=== PATIENT | male | born 1960 | race African-American/Black ===

== ENCOUNTER 2021-09-02 17:53 | Observation (INO) | payer OTHER, SELFPAY ==
--- NOTE | 2021-09-02 | ECG_ITS ---
Test Reason : GENERAL MEDICAL Blood Pressure : / mmHG Vent. Rate : 094 BPM Atrial Rate : 094 BPM P-R Int : 124 ms QRS Dur : 080 ms QT Int : 386 ms P-R-T Axes : 071 -61 118 degrees QTc Int : 482 ms Normal sinus rhythm Right atrial enlargement Minimal voltage criteria for LVH, may be normal variant ( Byron product ) ST elevation, consider early repolarization, pericarditis, or injury T wave abnormality, consider lateral ischemia Abnormal ECG No significant changes when compared with the previous EKG of same day. Referred By: Jadiel Garrett Electronically Signed By:GLADYS PEDRO
--- NOTE | ~2021-09-02 | XR_ITS ---
EXAMINATION: XR CHEST CLINICAL INFORMATION: Low oxygen saturation COMPARISON: None TECHNIQUE: Frontal view of the chest was obtained. FINDINGS: Cardiac leads overlie the chest. The lungs are well expanded. There is no focal consolidation, edema, or effusion. No pneumothorax. The cardiomediastinal silhouette is within normal limits. No acute osseous abnormality. XR/XR chest 1V IMPRESSION: Clear lungs.
--- NOTE | 2021-09-02 18:03 | ED.SEIZURE ---
HPI - Seizure General Chief Complaint: Seizure Stated Complaint: seizure yesterday Time Seen by Provider: 09/02/21 18:03 Source: patient Mode of arrival: EMS Limitations: no limitations History of Present Illness HPI Narrative: Patient with history of seizure for long time on Keppra came by EMS for having a seizure episode last night patient does get seizures off and on missed his Keppra last night now he does not any place to live looking for a place no head injury no other injuries patient is edentulous no tongue bite patient is on Keppra, aspirin, hydroxyzine, trazodone, olanzapine, meloxicam, and Plavix patient denies any chest pain or shortness of breath Related Data Home Medications Medication Instructions Recorded Confirmed aspirin 81 mg tablet,delayed 81 mg PO DAILY 09/02/21 09/02/21 release bacitracin 500 unit/gram topical 1 appl topical BID 09/02/21 09/02/21 ointment clopidogrel 75 mg tablet 75 mg PO DAILY 09/02/21 09/02/21 hydroxyzine pamoate 50 mg capsule 50 mg PO Q4H PRN Anxiety 09/02/21 09/02/21 levetiracetam 500 mg tablet 500 mg PO BID 09/02/21 09/02/21 meloxicam 15 mg tablet 15 mg PO DAILY 09/02/21 09/02/21 nicotine (polacrilex) 2 mg buccal 2 mg buccal Q2H PRN CRAVINGS 09/02/21 09/02/21 lozenge nicotine 21 mg/24 hr daily 1 patch transdermal DAILY 09/02/21 09/02/21 transdermal patch olanzapine 7.5 mg tablet 7.5 mg PO BEDTIME 09/02/21 09/02/21 trazodone 100 mg tablet 100 mg PO BEDTIME PRN Insomnia 09/02/21 09/02/21 Allergies Allergy/AdvReac Type Severity Reaction Status Date / Time No Known Allergies Allergy Verified 09/02/21 18:04 [facility] Past Medical History Medical History (Updated 09/03/21 @ 00:36 by Jadiel Garrett MD) Anxiety disorder Cocaine abuse Gout Hypertension Kidney stone Major depression Nicci PTSD (post-traumatic stress disorder) Seizure disorder TBI (traumatic brain injury) Surgical History (Updated 09/02/21 @ 23:25 by Lavon Ngo MD) No pertinent past surgical history Family History Family History (Updated 09/02/21 @ 23:24 by Lavon Ngo MD) Other No family history of coronary artery disease Social History Social History Alcohol intake: current Alcohol intake frequency: former alcohol drinker Patient Tobacco Use Status: Current everyday Tobacco user Use of substances other than those prescribed or required for medical reasons: Yes Substance Use Type: Crack/Cocaine and Marijuana Substance Use Frequency: Occasionally Advance Directives: No Advance Directives Information Provided: No service: Yes Current occupational status: unemployed Physical Exam Vital Signs: Vital Signs: Last Vital Signs Temp 98.3 F 09/02/21 23:13 Pulse 97 09/02/21 21:28 Resp 22 H 09/02/21 23:13 BP 101/73 09/02/21 23:13 Pulse Ox 96 09/02/21 23:13 O2 Del Method 09/02/21 23:13 BMI result Body Mass Index 21.4 Appearance: Alert. Oriented X3. No acute distress. Eyes: PERRLA, No Nystagmus ENT: Pharynx normal. Oral Mucosa moist Neck: Normal inspection. Neck supple. CVS: Normal heart rate and rhythm. Pulses normal. No murmur no rub or gallop Respiratory: No respiratory distress. Equal air entry bilateral, no wheezing/rales/rhonchi Abdomen: Soft and nontender. Bowel sounds are present, no mass palpable, no CVA tenderness Skin: Skin warm and dry. Normal skin color. Normal skin turgor. Extremities: No lower extremity edema. No calf tenderness psych: Rapid speech frequently changing thought processing, nonsuicidal Neuro: Oriented X 3. No motor deficit. No sensory deficit.No cerebellar signs , cranial nerves II-XII intact Course Reevaluation(s) Reevaluation #1: Patient denies any typical chest pain Tan whole body hurts EKG showed slight ST elevation concave upwards in V1 V2 with T inversion in lead 1 lead aVL V4 V5 V6 no old EKG to compare patient troponin initial was 19.6 at this time patient denies any significant chest pain will repeat the EKG and repeat troponin Time: 20:34 MDM - Seizure MDM Narrative Medical decision making narrative: 9 pm Patient sleeping relaxed denies any chest pain EKG showed slight ST elevation in anterior leads case discussed with Dr. Shea product management manager ot STEMI but little concern repeat troponin and start on heparin drip if troponin increases significantly transfer [facility] 2200 repeat troponins less than initial troponin. Patient denies any chest pain. Will admit patient for observation and Cardiology evaluation tomorrow Lab Data Attestation: I reviewed the patient's lab results. Result diagrams: 09/02/21 19:30 09/02/21 19:30 Labs: Lab Results 09/02/21 09/02/21 09/02/21 Range/Units 18:47 19:30 19:30 WBC 16.5 H (4.8-10.8) X10*3/uL RBC 5.15 (4.60-5.80) X10*6/uL Hgb 14.0 (14.0-18.0) g/dl Hct 41.5 L (42.0-52.0) % MCV 80.6 (80.0-98.0) fL MCH 27.2 (27.0-33.0) pg MCHC 33.7 (31.0-36.0) g/dl RDW 14.3 (11.0-16.0) % Plt Count 362 (160-400) X10*3/uL MPV 10.0 (9.4-12.4) fL Immature Gran % (Auto) 0.5 H (0.0-0.4) % Neut % (Auto) 82.7 H (45-73) % Lymph % (Auto) 10.7 L (20-40) % [place] % (Auto) 5.9 (2-11) % Eos % (Auto) 0.1 (0-4) % Baso % (Auto) 0.1 (0-2) % Lymph # (Auto) 1.8 (1.2-4.9) X10*3/uL [place] # (Auto) 1.0 (0.1-1.2) X10*3/uL Eos # (Auto) 0.0 (0.0-0.4) X10*3/uL Baso # (Auto) 0.0 (0.0-0.2) X10*3/uL Abs Immat Gran (auto) 0.08 H (0.00-0.03) X10*3/uL Absolute Neuts (auto) 13.7 H (2.0-8.3) x10*3/uL Absolute Nucleated RBC 0.000 (0.0-0.012) X10*3/uL Nucleated RBC % (auto) 0.0 (0.0-0.2) /100WBC Smear Tech's Comments VERIFIED PT (10.0-13.1) SEC INR (0.9-1.1) aPTT Heparin Protocol (53-77.9) SEC Sodium 137 (135-145) mmol/L Potassium 4.3 (3.3-5.1) mmol/L Chloride 104 (96-108) mmol/L Carbon Dioxide 24 (22-29) mmol/L Anion Gap 13 (12-20) BUN 18 H (9-16) mg/dL Creatinine 1.30 (0.5-1.4) mg/dL Estim Creat Clear Calc 48.4 Estimated GFR 56 Random Glucose 75 (60-115) mg/dL Calcium 9.6 (8.4-10.2) mg/dL Total Bilirubin 1.2 H (0.0-1.0) mg/dL AST 24 (5-37) U/L ALT 16 (0-40) U/L Alkaline Phosphatase 85 (39-117) U/L Troponin I High Sens (<3.5-35.0) ng/L Total Protein 8.7 H (6.5-8.0) g/dL Albumin 4.4 (3.5-5.0) g/dL Urine Color Urine Appearance Urine pH (5.0-8.0) Ur Specific [place] (1.005-1.025) Urine Protein (NEG-TRACE) MG/DL Urine Glucose (UA) (NEG) MG/DL Urine Ketones (NEG) MG/DL Urine Blood (NEG) Urine Nitrite (NEG) Ur Leukocyte Esterase (NEG) Urine Opiates Screen (Not Detect) Urine Fentanyl Screen (Not Detect) Ur Barbiturates Screen (Not Detect) Ur Phencyclidine Scrn (Not Detect) Ur Amphetamines Screen (Not Detect) Urine Cocaine Screen (Not Detect) U Marijuana (THC) Screen (Not Detect) COVID-19 (MARS) Negative (Negative) COVID-19 Clin Com See Note Influenza Type A (FELICITA) (Negative) Influenza Type B (FELICITA) (Negative) Influenza A & B Note 09/02/21 09/02/21 09/02/21 Range/Units 19:31 19:33 21:00 WBC (4.8-10.8) X10*3/uL RBC (4.60-5.80) X10*6/uL Hgb (14.0-18.0) g/dl Hct (42.0-52.0) % MCV (80.0-98.0) fL MCH (27.0-33.0) pg MCHC (31.0-36.0) g/dl RDW (11.0-16.0) % Plt Count (160-400) X10*3/uL MPV (9.4-12.4) fL Immature Gran % (Auto) (0.0-0.4) % Neut % (Auto) (45-73) % Lymph % (Auto) (20-40) % [place] % (Auto) (2-11) % Eos % (Auto) (0-4) % Baso % (Auto) (0-2) % Lymph # (Auto) (1.2-4.9) X10*3/uL [place] # (Auto) (0.1-1.2) X10*3/uL Eos # (Auto) (0.0-0.4) X10*3/uL Baso # (Auto) (0.0-0.2) X10*3/uL Abs Immat Gran (auto) (0.00-0.03) X10*3/uL Absolute Neuts (auto) (2.0-8.3) x10*3/uL Absolute Nucleated RBC (0.0-0.012) X10*3/uL Nucleated RBC % (auto) (0.0-0.2) /100WBC Smear Tech's Comments PT (10.0-13.1) SEC INR (0.9-1.1) aPTT Heparin Protocol (53-77.9) SEC Sodium (135-145) mmol/L Potassium (3.3-5.1) mmol/L Chloride (96-108) mmol/L Carbon Dioxide (22-29) mmol/L Anion Gap (12-20) BUN (9-16) mg/dL Creatinine (0.5-1.4) mg/dL Estim Creat Clear Calc Estimated GFR Random Glucose (60-115) mg/dL Calcium (8.4-10.2) mg/dL Total Bilirubin (0.0-1.0) mg/dL AST (5-37) U/L ALT (0-40) U/L Alkaline Phosphatase (39-117) U/L Troponin I High Sens 19.6 18.6 (<3.5-35.0) ng/L Total Protein (6.5-8.0) g/dL Albumin (3.5-5.0) g/dL Urine Color Urine Appearance Urine pH (5.0-8.0) Ur Specific [place] (1.005-1.025) Urine Protein (NEG-TRACE) MG/DL Urine Glucose (UA) (NEG) MG/DL Urine Ketones (NEG) MG/DL Urine Blood (NEG) Urine Nitrite (NEG) Ur Leukocyte Esterase (NEG) Urine Opiates Screen (Not Detect) Urine Fentanyl Screen (Not Detect) Ur Barbiturates Screen (Not Detect) Ur Phencyclidine Scrn (Not Detect) Ur Amphetamines Screen (Not Detect) Urine Cocaine Screen (Not Detect) U Marijuana (THC) Screen (Not Detect) COVID-19 (MARS) (Negative) COVID-19 Clin Com Influenza Type A (FELICITA) Negative (Negative) Influenza Type B (FELICITA) Negative (Negative) Influenza A & B Note See Note 09/02/21 09/02/21 09/02/21 Range/Units 21:19 21:43 21:43 WBC (4.8-10.8) X10*3/uL RBC (4.60-5.80) X10*6/uL Hgb (14.0-18.0) g/dl Hct (42.0-52.0) % MCV (80.0-98.0) fL MCH (27.0-33.0) pg MCHC (31.0-36.0) g/dl RDW (11.0-16.0) % Plt Count (160-400) X10*3/uL MPV (9.4-12.4) fL Immature Gran % (Auto) (0.0-0.4) % Neut % (Auto) (45-73) % Lymph % (Auto) (20-40) % [place] % (Auto) (2-11) % Eos % (Auto) (0-4) % Baso % (Auto) (0-2) % Lymph # (Auto) (1.2-4.9) X10*3/uL [place] # (Auto) (0.1-1.2) X10*3/uL Eos # (Auto) (0.0-0.4) X10*3/uL Baso # (Auto) (0.0-0.2) X10*3/uL Abs Immat Gran (auto) (0.00-0.03) X10*3/uL Absolute Neuts (auto) (2.0-8.3) x10*3/uL Absolute Nucleated RBC (0.0-0.012) X10*3/uL Nucleated RBC % (auto) (0.0-0.2) /100WBC Smear Tech's Comments PT 13.4 H (10.0-13.1) SEC INR 1.2 H (0.9-1.1) aPTT Heparin Protocol 28.9 L (53-77.9) SEC Sodium (135-145) mmol/L Potassium (3.3-5.1) mmol/L Chloride (96-108) mmol/L Carbon Dioxide (22-29) mmol/L Anion Gap (12-20) BUN (9-16) mg/dL Creatinine (0.5-1.4) mg/dL Estim Creat Clear Calc Estimated GFR Random Glucose (60-115) mg/dL Calcium (8.4-10.2) mg/dL Total Bilirubin (0.0-1.0) mg/dL AST (5-37) U/L ALT (0-40) U/L Alkaline Phosphatase (39-117) U/L Troponin I High Sens (<3.5-35.0) ng/L Total Protein (6.5-8.0) g/dL Albumin (3.5-5.0) g/dL Urine Color YELLOW Urine Appearance CLEAR Urine pH 6.0 (5.0-8.0) Ur Specific [place] 1.020 (1.005-1.025) Urine Protein TRACE (NEG-TRACE) MG/DL Urine Glucose (UA) NEG (NEG) MG/DL Urine Ketones 5 (NEG) MG/DL Urine Blood NEG (NEG) Urine Nitrite NEG (NEG) Ur Leukocyte Esterase NEG (NEG) Urine Opiates Screen Not Detected (Not Detect) Urine Fentanyl Screen Not Detected (Not Detect) Ur Barbiturates Screen Not Detected (Not Detect) Ur Phencyclidine Scrn Not Detected (Not Detect) Ur Amphetamines Screen Not Detected (Not Detect) Urine Cocaine Screen POSITIVE H (Not Detect) U Marijuana (THC) Screen POSITIVE H (Not Detect) COVID-19 (MARS) (Negative) COVID-19 Clin Com Influenza Type A (FELICITA) (Negative) Influenza Type B (FELICITA) (Negative) Influenza A & B Note ECG Data Attestation: I personally reviewed and interpreted this ECG as follows: Interpretation: Normal sinus rhythm heart rate [address] elevation with concave upwards in V1 V2 T inversion in lead 1 aVL V4 V5 V6 questionable pericarditis versus early repolarization. Critical Care Time Critical Care Time Critical Care Time: Yes Total Critical Care Time: 55 Attestation: I spent 55 minutes of critical care, with interventions, assessments, speaking to patient, consultants, and family. Discharge Plan Discharge Clinical Impression: Epileptic seizure, Abnormal ECG, Non-ST elevation AL (NSTEMI) Patient Disposition: Admitted As Inpatient
[2021-09-02 18:09] VITALS: BP 124/83; BP 130/80; PULSE 94; PULSE 98; RESP 20; TEMP 36.9; O2SAT 91; O2SAT 98; BMI 21.4
--- NOTE | 2021-09-02 18:20 | PC.NURSE ---
PATIENT WAS CHANGE INTO HOSPITAL ATTIRE BY THIS PCT ,PATIENT BELONGINGS ARE IN DECON.
[2021-09-02] MEDS: levETIRAcetam 500 MG TABLET PO (18:23)
--- NOTE | 2021-09-02 19:00 | ECG_ITS ---
Test Reason : CP Blood Pressure : / mmHG Vent. Rate : 093 BPM Atrial Rate : 093 BPM P-R Int : 132 ms QRS Dur : 074 ms QT Int : 374 ms P-R-T Axes : 063 -63 128 degrees QTc Int : 465 ms Normal sinus rhythm Biatrial enlargement ST elevation anterior leads, possible repolarization or pericarditis T wave abnormality, consider lateral ischemia Abnormal ECG No previous ECGs available Referred By: Jadiel Garrett Electronically Signed By:GLADYS PEDRO
[2021-09-02 19:14] LABS: COVID-19 Test Negative (Negative)
[2021-09-02 19:46] LABS: Basophils Percent Auto 0.1 % (0-2); Eosinophils Percent Auto 0.1 % (0-4); Hematocrit 41.5 % (42.0-52.0); Imm Gran Abs Auto 0.08 X10*3/uL (0.00-0.03); Imm Gran Pct Auto 0.5 % (0.0-0.4); Lymphocytes Absolute Auto 1.8 X10*3/uL (1.2-4.9); Lymphocytes Percent Auto 10.7 % (20-40); MANUAL DIFF FLAG SCAN; Mean Corpuscular HGB Conc 33.7 g/dl (31.0-36.0); Mean Corpuscular Hemoglobin 27.2 pg (27.0-33.0); Mean Corpuscular Volume 80.6 fL (80.0-98.0); Monocytes Percent Auto 5.9 % (2-11); Neutrophils Absolute Auto 13.7 x10*3/uL (2.0-8.3); Neutrophils Percent Auto 82.7 % (45-73); PLT CLUMP 1; Red Blood Count 5.15 X10*6/uL (4.60-5.80); Red Cell Distribution Width 14.3 % (11.0-16.0); SCAN SMEAR FLAG 1
[2021-09-02 19:54] VITALS: BP 131/90; PULSE 90; RESP 16; TEMP 36.9; O2SAT 93
[2021-09-02 19:55] LABS: Influenza A Negative (Negative); Influenza B2 Negative (Negative)
[2021-09-02 19:56] LABS: Alanine Aminotransferase 16 U/L (0-40); Albumin Level 4.4 g/dL (3.5-5.0); Alkaline Phosphatase 85 U/L (39-117); Anion Gap 13 (12-20); Aspartate Amino Transferase 24 U/L (5-37); Bilirubin Total 1.2 mg/dL (0.0-1.0); Blood Urea Nitrogen 18 mg/dL (9-16); Calcium 9.6 mg/dL (8.4-10.2); Carbon Dioxide 24 mmol/L (22-29); Chloride 104 mmol/L (96-108); Creatinine Clr Calc Pharmacy 48.4; Estimated Glomerular Filt Rate 56; Glucose Random 75 mg/dL (60-115); Potassium 4.3 mmol/L (3.3-5.1); Sodium 137 mmol/L (135-145); Total Protein 8.7 g/dL (6.5-8.0)
[2021-09-02 19:59] LABS: Troponin-I High Sensitivity 19.6 ng/L (<3.5-35.0)
[2021-09-02 20:03] LABS: Platelet Count 362 X10*3/uL (160-400); SLIDE REVIEW VERIFIED; White Blood Count 16.5 X10*3/uL (4.8-10.8)
--- NOTE | 2021-09-02 20:11 | MHC.CM.ED ---
Addendum entered by Naye Amaya 09/02/21 22:50: Per Dr. Espinoza, will admit. ST elevations, sl elevated troponin. Pt will need CARE team assessment when medically cleared. Has [facility] insurance. No Medicare per patient. Uses [facility]. Pt is poor historian. CM to call Donna at [facility] in the am to verify service. D/C plan pending CARE team assessment. Pt is homeless. States he does not live at the [place] address. CM to follow for d/c needs if needed. Addendum entered by Naye Amaya 09/02/21 21:41: Ania Corcoran (mother) [phone] [facility] Original Note: CM met with patient at request of Dr. Espinoza. Pt is A&Ox3. Rapid speech with frequently changing thoughts. Pt unable to stay on track with questions. States was living with someone in [place] and they kicked him out. Says he was gonna pay them $1000 to stay with them. States he met them on [employer] list. Thinks it was a scam . Admits to cocaine use. CM noted a wrist band on patient with [facility] logo and W[facility]L. [facility] but [facility] He is not a prisioner there . Pt tells CM he is 100% vet connected. [facility] called [facility] [place]. Requested information about this patient. Patient was admitted there from 08/11-08/28/21. Recent records vaxed to [facility]. Pt has medical history of HTN, Seizures, TBI, PTSD, Nicci, anxiety disorder, mood disorder, recurrent major depression, GERD, gout, and cocaine dependence. Pt admits to seizure disorder and tells CM we can just admit him to psych . Pt states he has his Keppra, but no other medications. Pt tells CM he was at [address] [place] [address] Road in [place] yesterday, but they kicked him out. Called telephone number listed ([phone])and it was not in service. Called second telephone number ([phone]), it went to voice mail of Director Risk for [place] on in [facility]. Message left for return call regarding this patient. PCP is Stephen Herrera and psych Claus King. Pt has no DME/services. Angela Mccord RN and Pema RN. CM suggested CARE team consult. Pt will have full medical work-up. CM to follow for d/c needs if needed.
--- NOTE | 2021-09-02 21:06 | PHA.MEDREC ---
Pharmacy Consult ? Medication Reconciliation Pharmacy has completed the medication reconciliation.
[2021-09-02 21:28] VITALS: BP 114/80; PULSE 97; RESP 20; TEMP 36.9; O2SAT 93; BMI 21.4
[2021-09-02 21:29] LABS: INTERNATIONAL NORM RATIO 1.2 (0.9-1.1); Prothrombin Time 13.4 SEC (10.0-13.1)
[2021-09-02 21:32] LABS: PTT Heparin Drip 28.9 SEC (53-77.9)
[2021-09-02 21:37] LABS: Troponin-I High Sensitivity 18.6 ng/L (<3.5-35.0)
--- NOTE | 2021-09-02 21:52 | PC.NURSE ---
patient request damian .
[2021-09-02 21:54] VITALS: BP 122/77
[2021-09-02 21:54] LABS: Appearance Urine CLEAR; Color Urine YELLOW; Glucose Urine UA NEG (NEG); Leukocyte Esterase Urine NEG (NEG); Nitrite Urine NEG (NEG); Urine Blood NEG (NEG); Urine Ketones 5 MG/DL (NEG); Urine Protein TRACE MG/DL (NEG-TRACE)
[2021-09-02] MEDS: Heparin Sodium,Porcine 5,000 UNIT/ML VIAL 5000 UNIT IVPUSH (21:57)
[2021-09-02] MEDS: Aspirin 81 MG TAB.CHEW 162 MG PO (21:57)
--- NOTE | 2021-09-02 21:57 | PC.NURSE ---
Patient's INR is 1.2 and MD made aware. Heparin protocol calls for 12 ux/kg/hr which is a high dose for someone who only weighs [address] Rodriguez want the bolus to be given and have repeat Troponin drawn at 2300 to see where INR is at. Therefore, patient may not need heparin in troponin is not elevated.
[2021-09-02 22:09] LABS: Fentanyl, urine Not Detected (Not Detect)
[2021-09-02 22:12] LABS: Amphetamine Screen Urine Not Detected (Not Detect); Barbiturates, Urine Not Detected (Not Detect); Cannabinoid Screen Urine POSITIVE (Not Detect); Cocaine Screen Urine POSITIVE (Not Detect); Opiate Screen Urine Not Detected (Not Detect); Phencyclidine Screen Urine Not Detected (Not Detect)
--- NOTE | 2021-09-02 23:08 | P.HPHOSP_ITS ---
History of Present Illness Date of Service: 09/02/21 Chief Complaint: Seizure activity This is a 61-year-old male with past medical history of seizure disorder, TBI, hypertension, gout, cocaine abuse, anxiety and depression, johanna, PTSD who presents to the hospital stating he had a seizure episode. Patient is somnolent but arousable and answers questions appropriately, very sleepy, difficult to stay up to answer questions completely. He reports missed doses of Keppra as he has become homeless. He currently is homeless and looking for a place to live in. He currently denies any headache, no change in vision, no head trauma, no chest pain, no shortness of breath, no abdominal pain nausea or vomiting, no diarrhea constipation, no urinary symptoms and no lower extremity edema. On arrival to the ED patient hemodynamically stable with no significant abnormal vitals Labs are significant for WBC count of 16.5, hemoglobin of 14, hematocrit 41.5, PT of 13.4, INR 1.2, creatinine of 1.31, BUN of 18 UA negative, UDS positive for cocaine and marijuana, COVID and influenza negative. EKG revealed ST elevations in leads V1, V2, V3, T-wave inversions in V4 V5 and V6, as well as lead 1 aVL, initial high sensitivity troponin of 19, repeat 18, this case was discussed with Cardiology, will admit for possible pericarditis, follow troponin, and echocardiogram in the morning. Review of Systems Review of Systems: Yes all other systems are reviewed and are negative [facility] [place] Medical History (Updated 09/02/21 @ 23:25 by Lavon Ngo MD) Anxiety disorder Cocaine abuse Gout Hypertension Kidney stone Major depression Johanna PTSD (post-traumatic stress disorder) Seizure disorder TBI (traumatic brain injury) Family History (Updated 09/02/21 @ 23:24 by Lavon Ngo MD) Other No family history of coronary artery disease Surgical History (Updated 09/02/21 @ 23:25 by Lavon Ngo MD) No pertinent past surgical history Social History Alcohol intake: current Alcohol intake frequency: former alcohol drinker Patient Tobacco Use Status: Current everyday Tobacco user Use of substances other than those prescribed or required for medical reasons: Yes Substance Use Type: Crack/Cocaine and Marijuana Substance Use Frequency: Occasionally Advance Directives: No Advance Directives Information Provided: No service: Yes Current occupational status: unemployed Meds Allergies Allergy/AdvReac Type Severity Reaction Status Date / Time No Known Allergies Allergy Verified 09/02/21 18:04 Active Medications: Current Medications Acetaminophen (Acetaminophen 325 Mg Tablet) 650 mg PO Q6H PRN PRN Reason: Pain, Mild (Pain Scale 1-3) Colchicine (Colchicine 0.6 Mg Tablet) 0.6 mg PO BID [facility] Docusate Sodium (Docusate Sodium 100 Mg Capsule) 100 mg PO DAILY PRN PRN Reason: Constipation Ibuprofen (Ibuprofen 600 Mg Tablet) 600 mg PO Q8H ZEKE Omeprazole (Omeprazole 40 Mg Capsule.Dr) 40 mg PO BID@0630,1630 [facility] Ondansetron HCl (Ondansetron Hcl 4 Mg/2 Ml Vial) 4 mg IVPUSH Q8H PRN PRN Reason: Nausea and Vomiting Pharmacy Consult (Consult Rx Perform Med Rec) 1 each MISCELLANE ONCE PRN PRN Reason: Consult order Sodium Chloride (0.9 % Sodium Chloride Flush 3 Ml Syringe) 3 ml IVFLUSH QSHIFT [facility] Home Medications Medication Instructions Recorded Confirmed Last Taken Type aspirin 81 mg tablet,delayed 81 mg PO DAILY 09/02/21 09/02/21 Unknown History release bacitracin 500 unit/gram topical 1 appl topical BID 09/02/21 09/02/21 Unknown History ointment clopidogrel 75 mg tablet 75 mg PO DAILY 09/02/21 09/02/21 Unknown History hydroxyzine pamoate 50 mg capsule 50 mg PO Q4H PRN Anxiety 09/02/21 09/02/21 Unknown History levetiracetam 500 mg tablet 500 mg PO BID 09/02/21 09/02/21 Unknown History meloxicam 15 mg tablet 15 mg PO DAILY 09/02/21 09/02/21 Unknown History nicotine (polacrilex) 2 mg buccal 2 mg buccal Q2H PRN CRAVINGS 09/02/21 09/02/21 Unknown History lozenge nicotine 21 mg/24 hr daily 1 patch transdermal DAILY 09/02/21 09/02/21 Unknown History transdermal patch olanzapine 7.5 mg tablet 7.5 mg PO BEDTIME 09/02/21 09/02/21 Unknown History trazodone 100 mg tablet 100 mg PO BEDTIME PRN Insomnia 09/02/21 09/02/21 Unknown History Physical Exam Vital Signs and Narrative: Vital Signs: Last Vital Signs Temp 98.5 F 09/02/21 21:28 Pulse 97 09/02/21 21:28 Resp 20 09/02/21 21:28 BP 122/77 09/02/21 21:54 Pulse Ox 93 09/02/21 21:28 O2 Del Method 09/02/21 21:28 BMI result Body Mass Index 21.4 Const: Other: Patient is somnolent but arousable, oriented to self and place, answers questions appropriately but is very tubal General: cooperative and no acute distress Eyes: General: appearance normal, both eyes and all related structures Resp: Effort & Inspection: normal respiratory effort Auscultation: clear to auscultation bilaterally Cardio: Rate: regular rate Rhythm: regular rhythm GI: Palpation (GI): Soft to palpation Auscultation: normal bowel sounds Skin: General skin exam: no rashes or lesions noted Neuro: Cognition (Neuro): normal cognition Extrem: General: Yes normal to inspection and Yes no pedal edema Results Labs CBC and Chem 7: 09/02/21 19:30 09/02/21 19:30 Labs: Laboratory Results - last 24 hr 09/02/21 09/02/21 09/02/21 18:47 19:30 19:30 MCV 80.6 MCH 27.2 MCHC 33.7 RDW 14.3 Plt Count 362 MPV 10.0 Immature Gran % (Auto) 0.5 H Neut % (Auto) 82.7 H Lymph % (Auto) 10.7 L [place] % (Auto) 5.9 Eos % (Auto) 0.1 Baso % (Auto) 0.1 Lymph # (Auto) 1.8 [place] # (Auto) 1.0 Eos # (Auto) 0.0 Baso # (Auto) 0.0 Abs Immat Gran (auto) 0.08 H Absolute Neuts (auto) 13.7 H Absolute Nucleated RBC 0.000 Nucleated RBC % (auto) 0.0 Smear Tech's Comments VERIFIED PT INR aPTT Heparin Protocol Anion Gap 13 Estim Creat Clear Calc 48.4 Estimated GFR 56 Random Glucose 75 Calcium 9.6 Total Bilirubin 1.2 H AST 24 ALT 16 Alkaline Phosphatase 85 Troponin I High Sens Total Protein 8.7 H Albumin 4.4 Urine Color Urine Appearance Urine pH Ur Specific [place] Urine Protein Urine Glucose (UA) Urine Ketones Urine Blood Urine Nitrite Ur Leukocyte Esterase Urine Opiates Screen Urine Fentanyl Screen Ur Barbiturates Screen Ur Phencyclidine Scrn Ur Amphetamines Screen Urine Cocaine Screen U Marijuana (THC) Screen COVID-19 (MARS) Negative COVID-19 Clin Com See Note Influenza Type A (FELICITA) Influenza Type B (FELICITA) Influenza A & B Note 09/02/21 09/02/21 09/02/21 19:31 19:33 21:00 MCV MCH MCHC RDW Plt Count MPV Immature Gran % (Auto) Neut % (Auto) Lymph % (Auto) [place] % (Auto) Eos % (Auto) Baso % (Auto) Lymph # (Auto) [place] # (Auto) Eos # (Auto) Baso # (Auto) Abs Immat Gran (auto) Absolute Neuts (auto) Absolute Nucleated RBC Nucleated RBC % (auto) Smear Tech's Comments PT INR aPTT Heparin Protocol Anion Gap Estim Creat Clear Calc Estimated GFR Random Glucose Calcium Total Bilirubin AST ALT Alkaline Phosphatase Troponin I High Sens 19.6 18.6 Total Protein Albumin Urine Color Urine Appearance Urine pH Ur Specific [place] Urine Protein Urine Glucose (UA) Urine Ketones Urine Blood Urine Nitrite Ur Leukocyte Esterase Urine Opiates Screen Urine Fentanyl Screen Ur Barbiturates Screen Ur Phencyclidine Scrn Ur Amphetamines Screen Urine Cocaine Screen U Marijuana (THC) Screen COVID-19 (MARS) COVID-19 Clin Com Influenza Type A (FELICITA) Negative Influenza Type B (FELICITA) Negative Influenza A & B Note See Note 09/02/21 09/02/21 09/02/21 21:19 21:43 21:43 MCV MCH MCHC RDW Plt Count MPV Immature Gran % (Auto) Neut % (Auto) Lymph % (Auto) [place] % (Auto) Eos % (Auto) Baso % (Auto) Lymph # (Auto) [place] # (Auto) Eos # (Auto) Baso # (Auto) Abs Immat Gran (auto) Absolute Neuts (auto) Absolute Nucleated RBC Nucleated RBC % (auto) Smear Tech's Comments PT 13.4 H INR 1.2 H aPTT Heparin Protocol 28.9 L Anion Gap Estim Creat Clear Calc Estimated GFR Random Glucose Calcium Total Bilirubin AST ALT Alkaline Phosphatase Troponin I High Sens Total Protein Albumin Urine Color YELLOW Urine Appearance CLEAR Urine pH 6.0 Ur Specific [place] 1.020 Urine Protein TRACE Urine Glucose (UA) NEG Urine Ketones 5 Urine Blood NEG Urine Nitrite NEG Ur Leukocyte Esterase NEG Urine Opiates Screen Not Detected Urine Fentanyl Screen Not Detected Ur Barbiturates Screen Not Detected Ur Phencyclidine Scrn Not Detected Ur Amphetamines Screen Not Detected Urine Cocaine Screen POSITIVE H U Marijuana (THC) Screen POSITIVE H COVID-19 (MARS) COVID-19 Clin Com Influenza Type A (FELICITA) Influenza Type B (FELICITA) Influenza A & B Note Assessment and Plan (1) Breakthrough seizure: Status: Acute (2) Abnormal EKG: Status: Acute Plan This is a 61-year-old male with past medical history of seizure disorder who presents to the hospital with complaints of breakthrough seizures well as being homeless found to have abnormal EKG # breakthrough seizure - likely secondary to medication noncompliance - will resume his home Keppra - will obtain Keppra level # abnormal EKG - patient denies any chest pain, troponin not significantly elevated and has remained flat with no delta - possibly secondary to pericarditis - cardiology consulted by ED physician recommended admission for observation, echocardiogram in the morning - prophylactically treat endocarditis - trend troponin DVT prophylaxis: Depending on the 3rd troponin if elevated will start patient on heparin GGT if not will do Eliquis subcu Quality Stroke Does the patient have a stroke diagnosis?: No VTE Prior VTE?: No VTE Risk Level:: Medical - moderate - high VTE Device Contraindication: Treatment Not Indicated VTE Drug Contraindication: N/A - Med Ordered
[2021-09-02 23:13] VITALS: BP 101/73; RESP 22; TEMP 36.8; O2SAT 96
[2021-09-02] MEDS: Omeprazole 40 MG CAPSULE.DR PO (23:56)
[2021-09-02] MEDS: Ibuprofen 600 MG TABLET PO (23:57)
[2021-09-02] MEDS: Colchicine 0.6 MG TABLET PO (23:57)
[2021-09-03] MEDS: iohexoL 350 MG/ML 100 ML INFUS..BTL 65 ML IV (00:03)
[2021-09-03] MEDS: 0.9 % Sodium Chloride Flush 3 ML SYRINGE IVFLUSH ×3 (00:05→15:38)
[2021-09-03 00:49] LABS: Troponin-I High Sensitivity 14.7 ng/L (<3.5-35.0)
[2021-09-03 06:00] VITALS: BP 113/70; PULSE 77; RESP 14; TEMP 36.8; O2SAT 95
[2021-09-03] MEDS: Ibuprofen 600 MG TABLET PO ×2 (06:08→15:38)
[2021-09-03] MEDS: Omeprazole 40 MG CAPSULE.DR PO ×2 (06:29→15:38)
--- NOTE | 2021-09-03 07:00 | CA_ITS ---
Transthoracic Echocardiogram Patient (Last, First, Middle): Saul Corcoran, Gender: Male Date of : 1960 Age: 61 Procedure Date: 09/03/2021 Procedure Type: Transthoracic Echocardiogram Location: [facility] [place] Height: 162.56 cm Weight: 56.7 kg BSA: 1.60 m2 Heart Rate: bpm BP: 113 / 70 mmHg Data Modeler: Referring MD: Lavon Ngo MD Symptoms: ST elevations on EKG Study Quality: Good ECG Rhythm: Sinus Conclusions: - The left ventricular systolic function is mildly decreased. The calculated ejection fraction is 46% by biplane method. - The inferolateral wall is akinetic. - There is mild mitral valve regurgitation. - There is mild tricuspid valve regurgitation. Findings Left Ventricle Normal left ventricular cavity size. The left ventricular systolic function is mildly decreased. The calculated ejection fraction is 46% by biplane method. There is evidence of regional wall motion abnormalities. Diastolic function is normal for age. There is severe septal asymmetric hypertrophy. Wall Motion Rest Echo Findings The inferolateral wall is akinetic. Right Ventricle Normal right ventricular cavity size and systolic function. Atria Both atria are normal in size. Aortic Valve There is a normal trileaflet aortic valve. There is no aortic valve stenosis. There is trace (trivial) aortic valve regurgitation. Mitral Valve The mitral valve appears normal. There is mild mitral valve regurgitation. There is no mitral valve stenosis. Pulmonic Valve The pulmonic valve is likely normal. Tricuspid Valve Normal tricuspid valve structure. There is mild tricuspid valve regurgitation. The pulmonary artery systolic pressure is normal. Great Vessels The asc aorta is normal in size. Venous The inferior vena cava is normal in size and collapses greater than 50% with inspiration. Pericardium/Pleural There is no evidence of pericardial effusion. Prior Study Comparison No prior study available for comparison. Measurements 2D Linear Measurements IVSd: 1.48 0.6-0.9/0.6-1.0 cm LVIDd: 4.38 3.9-5.3/4.2-5.9 cm LVIDd Index: 2.74 2.4-3.2/2.2-3.1 cm/m2 LVIDs: 3.67 2.0-3.6 cm LVPWd: 0.86 0.7-1.1 cm Ao Root: 3.10 2.1-3.5 cm LA Diam: 2.70 2.7-3.8/3.0-4.0 cm LAIDs Index: 1.69 1.5-2.3 cm/m2 LV Mass: 228.78 67-162/88-224 g LV Mass Index: 142.99 43-95/49-115 g/m2 LVOT Diam: 2.10 3.0+(-)1.3 cm 2D Systolic Function EF 4C: 49.80 >55% EF 2C: 45.50 >55% EF BiP: 46.30 >55% Mitral Valve MV Pk E: 0.51 MV PK A: 0.71 MV Decel Time: 193.00 E/A: 0.70 E'Lateral: 6.53 E'Medial: 6.53 E/E' Med: 7.90 E/E' Lat: 7.90 PHT: 57.00 MVA PHT: 3.86 Decel Jerome: 2.66 Aortic Valve AoV Pk Papo: 1.22 AoV Mn Papo: 0.94 AoV VTI: 0.27 AoV Pk Grad: 6.00 Aov Mn Grad: 4.00 LENA Cont.VTI: 2.26 LVOT LVOT Pk Papo: 0.87 LVOT Mn Papo: 0.64 LVOT VTI: 0.18 LVOT Pk Grad: 3.00 LVOT Mn Grad: 2.00 LVOT Diam: 2.10 LVOT Area: 3.46 Diastolic Function MV Pk E: 0.51 MV Pk A: 0.71 E/A: 0.70 E'Medial: 6.53 E/E' Med: 7.90 E' Laterial: 6.53 E/E' Lat: 7.90 Right Ventricle TAPSE (mm): 20.00 TVS' Papo: 11.00 Tricuspid Valve TR Pk Papo: 2.43 TR Pk Grad: 24.00 RA Press: 3.00 RVSP: 27.00 Great Vessels Aorta Ao Root-2D: 3.10 2.0-3.7 cm Ao Asc: 3.30 2.1-3.4 cm Pulmonary Valve PV Pk Papo: 0.76 Peak PV Grad: 2.00 Updated in Other Vendor System with Status of Final Jose J Shea MD electronically signed on 09/03/2021 12:16:04 PM with status of Final
[2021-09-03 07:25] LABS: MANUAL DIFF FLAG NO
[2021-09-03 07:30] LABS: Basophils Absolute Auto 0.1 X10*3/uL (0.0-0.2); Basophils Percent Auto 0.4 % (0-2); Eosinophils Absolute Auto 0.2 X10*3/uL (0.0-0.4); Eosinophils Percent Auto 1.8 % (0-4); Hematocrit 36.6 % (42.0-52.0); Hemoglobin 12.1 g/dl (14.0-18.0); Imm Gran Abs Auto 0.04 X10*3/uL (0.00-0.03); Imm Gran Pct Auto 0.3 % (0.0-0.4); Lymphocytes Percent Auto 34.4 % (20-40); Mean Corpuscular HGB Conc 33.1 g/dl (31.0-36.0); Mean Corpuscular Hemoglobin 26.8 pg (27.0-33.0); Mean Platelet Volume 9.8 fL (9.4-12.4); Monocytes Absolute Auto 0.9 X10*3/uL (0.1-1.2); Monocytes Percent Auto 8.1 % (2-11); Neutrophils Absolute Auto 6.3 x10*3/uL (2.0-8.3); Platelet Count 328 X10*3/uL (160-400); Red Blood Count 4.52 X10*6/uL (4.60-5.80); Red Cell Distribution Width 14.2 % (11.0-16.0); White Blood Count 11.5 X10*3/uL (4.8-10.8)
[2021-09-03] MEDS: NaPROXEN 500 MG TABLET PO ×2 (07:33→20:25)
[2021-09-03] MEDS: levETIRAcetam 500 MG TABLET PO ×2 (07:33→20:17)
[2021-09-03] MEDS: Clopidogrel Bisulfate 75 MG TABLET PO (07:33)
[2021-09-03] MEDS: Aspirin Enteric Coated 81 MG TABLET.DR PO (07:33)
[2021-09-03 07:44] LABS: Anion Gap 13 (12-20); Blood Urea Nitrogen 23 mg/dL (9-16); Carbon Dioxide 22 mmol/L (22-29); Chloride 106 mmol/L (96-108); Estimated Glomerular Filt Rate 56; Glucose Random 88 mg/dL (60-115); Potassium 3.6 mmol/L (3.3-5.1); Sodium 137 mmol/L (135-145)
[2021-09-03 07:51] LABS: Calcium 8.8 mg/dL (8.4-10.2)
[2021-09-03] MEDS: Colchicine 0.6 MG TABLET PO (09:45)
[2021-09-03 09:46] VITALS: BP 113/71; PULSE 75; RESP 16; O2SAT 97
--- NOTE | 2021-09-03 10:38 | PM.CNCAR ---
History of Present Illness History of Present Illness Date of Service: 09/03/21 Chief complaint: Abnormal EKG Narrative: This is a cardiology consultation regarding abnormal EKG. Patient has history of seizure disorder, active cocaine use and multiple other medical comorbidities as listed including hypertension, TBI, gout, anxiety, depression, johanna, PTSD. It seems that he used cocaine yesterday. Current admission is mainly for seizure episode. Per H and P, he apparently missed dose of Keppra as he became homeless. From the cardiac standpoint, he had a routine EKG in the ER and that showed ST elevation and hence we have been consulted. Patient states that his whole body is in pain but he does not have any clear anginal-type symptoms. Otherwise he does not seem to be any medications. When asked him about cocaine, he states he does use daily but only occasionally. Denies any heroin use. Seems to also be a smoker but no alcohol excess per patient. Review of Systems Review of Systems: Yes all other systems are reviewed and are negative Constitutional: Constitutional: Reports as per HPI Eyes: Eyes: Reports as per HPI ENT: Reports as per HPI Cardiovascular: Cardiovascular: Reports as per HPI, Denies acrocyanosis, Denies cool extremities, Denies chest pain, Denies leg edema, Denies lightheadedness, Denies palpitations and Denies dyspnea Respiratory: Respiratory: Reports as per HPI, Reports no additional respiratory complaints and Denies dyspnea Gastrointestinal: Gastrointestinal: Reports as per HPI and Reports no additional gastrointestinal complaints Genitourinary: Genitourinary: Reports no additional male genitourinary complaints and Reports as per HPI Musculoskeletal: Musculoskeletal: Reports no additional musculoskeletal complaints (Pain everywhere) and Reports as per HPI Integumentary/Breasts: Skin/Breast: Reports system reviewed and no additional complaints, except as docu Neurologic: Reports system reviewed and no additional complaints, except as documented and Reports as per HPI Psychiatric: Psychiatric: Reports no additional psychiatric complaints and Reports as per HPI Endocrine: Endocrine: Reports no additional endocrine complaints, Reports as per HPI and Denies palpitations Hematologic/Lymphatic: Hematologic/Lymphatic: Reports no additional hematologic/lymphatic complaints and Reports as per HPI Allergic/Immunologic: Allergic/Immunologic: Reports no additional allergic/immunologic complaints and Reports as per HPI [facility] Past Medical History Medical History (Updated 09/03/21 @ 10:43 by Jose J Shea MD) Anxiety disorder Gout Hypertension Kidney stone Major depression Johanna PTSD (post-traumatic stress disorder) Seizure disorder TBI (traumatic brain injury) Family History Family History (Updated 09/03/21 @ 10:41 by Jose J Shea MD) Other No family history of coronary artery disease Pacemaker Surgical History Surgical History (Updated 09/02/21 @ 23:25 by Lavon Ngo MD) No pertinent past surgical history Social History Social History Alcohol intake: current Alcohol intake frequency: former alcohol drinker Patient Tobacco Use Status: Current everyday Tobacco user Use of substances other than those prescribed or required for medical reasons: Yes Substance Use Type: Crack/Cocaine and Marijuana Substance Use Frequency: Occasionally Advance Directives: No Advance Directives Information Provided: No service: Yes Current occupational status: unemployed Meds Allergies Allergy/AdvReac Type Severity Reaction Status Date / Time No Known Allergies Allergy Verified 09/02/21 18:04 Active Medications: Current Medications Acetaminophen (Acetaminophen 325 Mg Tablet) 650 mg PO Q6H PRN PRN Reason: Pain, Mild (Pain Scale 1-3) Aspirin (Aspirin Enteric Coated 81 Mg Tablet.) 81 mg PO DAILY [facility] Last Admin: 09/03/21 07:33 Dose: 81 mg Bacitracin (Bacitracin Oint 14 Gm Tube) 1 appl TOPICAL BID [facility]; Protocol Last Admin: 09/03/21 07:34 Dose: Not Given Clopidogrel Bisulfate (Clopidogrel Bisulfate 75 Mg Tablet) 75 mg PO DAILY [facility] Last Admin: 09/03/21 07:33 Dose: 75 mg Colchicine (Colchicine 0.6 Mg Tablet) 0.6 mg PO BID [facility] Last Admin: 09/03/21 09:45 Dose: 0.6 mg Docusate Sodium (Docusate Sodium 100 Mg Capsule) 100 mg PO DAILY PRN PRN Reason: Constipation Hydroxyzine HCl (Hydroxyzine Hcl 50 Mg Tablet) 50 mg PO Q4H PRN PRN Reason: Anxiety Ibuprofen (Ibuprofen 600 Mg Tablet) 600 mg PO Q8H [facility] Last Admin: 09/03/21 06:08 Dose: 600 mg Levetiracetam (Levetiracetam 500 Mg Tablet) 500 mg PO BID [facility] Last Admin: 09/03/21 07:33 Dose: 500 mg Naproxen (Naproxen 500 Mg Tablet) 500 mg PO BID [facility] Last Admin: 09/03/21 07:33 Dose: 500 mg Nicotine (Nicotine 21 Mg Patch.Td24) 21 mg TRANSDERMA DAILY [facility] Last Admin: 09/03/21 07:33 Dose: Not Given Nicotine Polacrilex (Nicotine Polacrilex Lozenge 2 Mg Lozenge) 2 mg BUCCAL Q2H PRN PRN Reason: CRAVINGS Olanzapine (Olanzapine 7.5 Mg Tablet) 7.5 mg PO BEDTIME [facility] Last Admin: 09/03/21 00:06 Dose: Not Given Omeprazole (Omeprazole 40 Mg Capsule.) 40 mg PO BID@0630,1630 [facility] Last Admin: 09/03/21 06:29 Dose: 40 mg Ondansetron HCl (Ondansetron Hcl 4 Mg/2 Ml Vial) 4 mg IVPUSH Q8H PRN PRN Reason: Nausea and Vomiting Pharmacy Consult (Consult Rx Perform Med Rec) 1 each MISCELLANE ONCE PRN PRN Reason: Consult order Sodium Chloride (0.9 % Sodium Chloride Flush 3 Ml Syringe) 3 ml IVFLUSH QSHIFT [facility] Last Admin: 09/03/21 07:34 Dose: 3 ml Trazodone HCl (Trazodone Hcl 100 Mg Tablet) 100 mg PO BEDTIME PRN PRN Reason: Insomnia Home Medications Medication Instructions Recorded Confirmed Last Taken Type aspirin 81 mg tablet,delayed 81 mg PO DAILY 09/02/21 09/02/21 Unknown History release bacitracin 500 unit/gram topical 1 appl topical BID 09/02/21 09/02/21 Unknown History ointment clopidogrel 75 mg tablet 75 mg PO DAILY 09/02/21 09/02/21 Unknown History hydroxyzine pamoate 50 mg capsule 50 mg PO Q4H PRN Anxiety 09/02/21 09/02/21 Unknown History levetiracetam 500 mg tablet 500 mg PO BID 09/02/21 09/02/21 Unknown History meloxicam 15 mg tablet 15 mg PO DAILY 09/02/21 09/02/21 Unknown History nicotine (polacrilex) 2 mg buccal 2 mg buccal Q2H PRN CRAVINGS 09/02/21 09/02/21 Unknown History lozenge nicotine 21 mg/24 hr daily 1 patch transdermal DAILY 09/02/21 09/02/21 Unknown History transdermal patch olanzapine 7.5 mg tablet 7.5 mg PO BEDTIME 09/02/21 09/02/21 Unknown History trazodone 100 mg tablet 100 mg PO BEDTIME PRN Insomnia 09/02/21 09/02/21 Unknown History Physical Exam Vital Signs: Vital Signs: Last Vital Signs Temp 98.3 F 09/03/21 06:00 Pulse 75 09/03/21 09:46 Resp 16 09/03/21 09:46 BP 113/71 09/03/21 09:46 Pulse Ox 97 09/03/21 09:46 O2 Del Method 09/03/21 06:00 BMI result Body Mass Index 21.4 Const: General: comfortable and no acute distress HEENT: Other: Unremarkable Head: Yes normal to inspection Neck: Neck: Yes normal visual inspection Chest: Chest palpation & inspection: normal inspection of the chest Resp: Auscultation: clear to auscultation bilaterally Cardio: Palpation: normal PMI Heart sounds: S1 normal heart sound present, S2 normal heart sound present, no gallops, no murmurs and no rubs GI: Palpation (GI): Soft to palpation Back/Spine/Pelvis: Other: unremarkable Skin: General skin exam: no rashes or lesions noted Neuro: General: no focal motor deficits Extrem: General: Yes normal to inspection Psych: Mental Status: mental status grossly normal Objective Labs and Meds Result diagrams: 09/03/21 07:16 09/03/21 07:16 Lab results: Laboratory Results - last 24 hr 09/02/21 09/02/21 09/02/21 18:47 19:30 19:30 WBC 16.5 H RBC 5.15 Hgb 14.0 Hct 41.5 L MCV 80.6 MCH 27.2 MCHC 33.7 RDW 14.3 Plt Count 362 MPV 10.0 Immature Gran % (Auto) 0.5 H Neut % (Auto) 82.7 H Lymph % (Auto) 10.7 L [place] % (Auto) 5.9 Eos % (Auto) 0.1 Baso % (Auto) 0.1 Lymph # (Auto) 1.8 [place] # (Auto) 1.0 Eos # (Auto) 0.0 Baso # (Auto) 0.0 Abs Immat Gran (auto) 0.08 H Absolute Neuts (auto) 13.7 H Absolute Nucleated RBC 0.000 Nucleated RBC % (auto) 0.0 Smear Tech's Comments VERIFIED PT INR aPTT Heparin Protocol Sodium 137 Potassium 4.3 Chloride 104 Carbon Dioxide 24 Anion Gap 13 BUN 18 H Creatinine 1.30 Estim Creat Clear Calc 48.4 Estimated GFR 56 Random Glucose 75 Calcium 9.6 Total Bilirubin 1.2 H AST 24 ALT 16 Alkaline Phosphatase 85 Troponin I High Sens Total Protein 8.7 H Albumin 4.4 Urine Color Urine Appearance Urine pH Ur Specific [place] Urine Protein Urine Glucose (UA) Urine Ketones Urine Blood Urine Nitrite Ur Leukocyte Esterase Urine Opiates Screen Urine Fentanyl Screen Ur Barbiturates Screen Ur Phencyclidine Scrn Ur Amphetamines Screen Urine Cocaine Screen U Marijuana (THC) Screen COVID-19 (MARS) Negative COVID-19 Clin Com See Note Influenza Type A (FELICITA) Influenza Type B (FELICITA) Influenza A & B Note 09/02/21 09/02/21 09/02/21 19:31 19:33 21:00 WBC RBC Hgb Hct MCV MCH MCHC RDW Plt Count MPV Immature Gran % (Auto) Neut % (Auto) Lymph % (Auto) [place] % (Auto) Eos % (Auto) Baso % (Auto) Lymph # (Auto) [place] # (Auto) Eos # (Auto) Baso # (Auto) Abs Immat Gran (auto) Absolute Neuts (auto) Absolute Nucleated RBC Nucleated RBC % (auto) Smear Tech's Comments PT INR aPTT Heparin Protocol Sodium Potassium Chloride Carbon Dioxide Anion Gap BUN Creatinine Estim Creat Clear Calc Estimated GFR Random Glucose Calcium Total Bilirubin AST ALT Alkaline Phosphatase Troponin I High Sens 19.6 18.6 Total Protein Albumin Urine Color Urine Appearance Urine pH Ur Specific [place] Urine Protein Urine Glucose (UA) Urine Ketones Urine Blood Urine Nitrite Ur Leukocyte Esterase Urine Opiates Screen Urine Fentanyl Screen Ur Barbiturates Screen Ur Phencyclidine Scrn Ur Amphetamines Screen Urine Cocaine Screen U Marijuana (THC) Screen COVID-19 (MARS) COVID-19 Clin Com Influenza Type A (FELICITA) Negative Influenza Type B (FELICITA) Negative Influenza A & B Note See Note 09/02/21 09/02/21 09/02/21 21:19 21:43 21:43 WBC RBC Hgb Hct MCV MCH MCHC RDW Plt Count MPV Immature Gran % (Auto) Neut % (Auto) Lymph % (Auto) [place] % (Auto) Eos % (Auto) Baso % (Auto) Lymph # (Auto) [place] # (Auto) Eos # (Auto) Baso # (Auto) Abs Immat Gran (auto) Absolute Neuts (auto) Absolute Nucleated RBC Nucleated RBC % (auto) Smear Tech's Comments PT 13.4 H INR 1.2 H aPTT Heparin Protocol 28.9 L Sodium Potassium Chloride Carbon Dioxide Anion Gap BUN Creatinine Estim Creat Clear Calc Estimated GFR Random Glucose Calcium Total Bilirubin AST ALT Alkaline Phosphatase Troponin I High Sens Total Protein Albumin Urine Color YELLOW Urine Appearance CLEAR Urine pH 6.0 Ur Specific [place] 1.020 Urine Protein TRACE Urine Glucose (UA) NEG Urine Ketones 5 Urine Blood NEG Urine Nitrite NEG Ur Leukocyte Esterase NEG Urine Opiates Screen Not Detected Urine Fentanyl Screen Not Detected Ur Barbiturates Screen Not Detected Ur Phencyclidine Scrn Not Detected Ur Amphetamines Screen Not Detected Urine Cocaine Screen POSITIVE H U Marijuana (THC) Screen POSITIVE H COVID-19 (MARS) COVID-19 Clin Com Influenza Type A (FELICITA) Influenza Type B (FELICITA) Influenza A & B Note 09/03/21 09/03/21 09/03/21 00:14 07:16 07:16 WBC 11.5 H RBC 4.52 L Hgb 12.1 L Hct 36.6 L MCV 81.0 MCH 26.8 L MCHC 33.1 RDW 14.2 Plt Count 328 MPV 9.8 Immature Gran % (Auto) 0.3 Neut % (Auto) 55.0 Lymph % (Auto) 34.4 [place] % (Auto) 8.1 Eos % (Auto) 1.8 Baso % (Auto) 0.4 Lymph # (Auto) 4.0 [place] # (Auto) 0.9 Eos # (Auto) 0.2 Baso # (Auto) 0.1 Abs Immat Gran (auto) 0.04 H Absolute Neuts (auto) 6.3 Absolute Nucleated RBC 0.000 Nucleated RBC % (auto) 0.0 Smear Tech's Comments PT INR aPTT Heparin Protocol Sodium 137 Potassium 3.6 Chloride 106 Carbon Dioxide 22 Anion Gap 13 BUN 23 H Creatinine 1.31 Estim Creat Clear Calc 48.0 Estimated GFR 56 Random Glucose 88 Calcium 8.8 D Total Bilirubin AST ALT Alkaline Phosphatase Troponin I High Sens 14.7 Total Protein Albumin Urine Color Urine Appearance Urine pH Ur Specific [place] Urine Protein Urine Glucose (UA) Urine Ketones Urine Blood Urine Nitrite Ur Leukocyte Esterase Urine Opiates Screen Urine Fentanyl Screen Ur Barbiturates Screen Ur Phencyclidine Scrn Ur Amphetamines Screen Urine Cocaine Screen U Marijuana (THC) Screen COVID-19 (MARS) COVID-19 Clin Com Influenza Type A (FELICITA) Influenza Type B (EFLICITA) Influenza A & B Note ECG Interpretation: EKG shows sinus rhythm at 93/Min; ST elevation suggestive of repolarization in the anteroseptal leads. There is also T inversions in lead 1, aVL and lateral precordial leads. Biatrial enlargement. Similar to prior [facility] EKG. EKG repeated and similar. Imaging Radiologist's impression: Impressions Chest X-Ray 09/03/21 00:12 IMPRESSION: Clear lungs. Assessment and Plan (1) Abnormal ECG: Status: Acute (2) Cocaine abuse: Status: Acute (3) Atherosclerotic cardiovascular disease: Status: Acute Plan EKG has findings of ST elevation in the precordial leads but this is similar to prior EKG from [facility]. Hence doubt any acute issue. High sensitivity troponins have been done 3 times and they are normal. Echocardiogram from [facility] 2019-LVEF 55-60%; cannot rule out basal to mid inferolateral/lateral hypokinesis. Cardiac [id number] of mid circumflex after a large OM 1; mid RCA/mid LAD 50%; proximal D1 90% but small to medium-sized vessel. Attempts at wiring the mid circumflex occlusion was not successful. Based on the above, he clearly has coronary disease but there is no unstable coronary syndrome at current current time. Will review the echocardiogram that has already been completed. Ideally should just be on treatment for stable coronary disease and refrain completely from using cocaine. But not sure if he will actually adhere to recommendations. We can at least keep him on aspirin and statins. Procedures Date of Service Date of Service: 09/03/21
[2021-09-03 11:58] VITALS: BP 113/71; PULSE 75; O2SAT 97
[2021-09-03 15:14] VITALS: BP 112/79; PULSE 74; RESP 14; O2SAT 98
--- NOTE | 2021-09-03 16:02 | MHC.CM.PN ---
Assisting with d/c planning needs: Pt reports being homeless: PT eval recommending STR. Pt had just been d/c'd from the [facility] [place] [facility] on 08/28. He had been d/c'd to a residence in [place] but states he can no longer return as the arrangement was part of a scam Call placed to [facility]: pt voluntarily entered the mental health inpt hospital w/complaints of depression/SI. He was treated and appropriately d/c'd. Per Valorie at [facility], pt has an extensive hx of going to [facility] hospitals in [place] including [place], [place], and [place]. Call placed to [facility] at - referred to a housing inspectors at [facility]. Call placed again to [facility] and spoke with Jing who will fax a release of information to [facility] for completion and potential placement within the [facility] program. CM to await forms. Preliminary STR referrals to be made however, pt has major barriers to placement including active substance use, psych hx, and homeless status.
--- NOTE | 2021-09-03 16:12 | HO.PM.IMPN ---
Subjective Subjective Date of Service: 09/03/21 Interval History: Seen and examined this morning Follow-up for seizure, abnormal EKG Reports generalized soreness, no chest pain at this time No shortness of breath Does endorse missing doses of Keppra Review of Systems Review of Systems: Yes all other systems are reviewed and are negative Constitutional Constitutional: Denies chills and Denies fever(s) Cardiovascular Cardiovascular: Denies chest pain, Denies palpitations and Denies dyspnea Respiratory Respiratory: Denies cough and Denies dyspnea Gastrointestinal Gastrointestinal: Denies abdominal pain, Denies nausea and Denies vomiting Endocrine Endocrine: Denies palpitations Physical Exam Vital Signs: Vital Signs: Last Vital Signs Temp 98.3 F 09/03/21 06:00 Pulse 74 09/03/21 15:14 Resp 14 09/03/21 15:14 BP 112/79 09/03/21 15:14 Pulse Ox 98 09/03/21 15:14 O2 Del Method 09/03/21 15:14 BMI result Body Mass Index 21.4 Const: General: cooperative, comfortable and no acute distress Resp: Effort & Inspection: normal respiratory effort and able to speak in complete sentences Auscultation: clear to auscultation bilaterally Cardio: Jugular venous distension: no JVD Rate: regular rate Heart sounds: S1 normal heart sound present and S2 normal heart sound present GI: Palpation (GI): Soft to palpation and nontender Neuro: Other: Grossly nonfocal Extrem: General: Yes no pedal edema Objective Data Active Medications Acetaminophen (Acetaminophen 325 Mg Tablet) 650 mg PO Q6H PRN PRN Reason: Pain, Mild (Pain Scale 1-3) Aspirin (Aspirin Enteric Coated 81 Mg Tablet.) 81 mg PO DAILY [facility] Last Admin: 09/03/21 07:33 Dose: 81 mg Documented By: SHRAVAN Bacitracin (Bacitracin Oint 14 Gm Tube) 1 appl TOPICAL BID [facility]; Protocol Last Admin: 09/03/21 07:34 Dose: Not Given Documented By: SHRAVAN Non-Admin Reason: Patient Refused Clopidogrel Bisulfate (Clopidogrel Bisulfate 75 Mg Tablet) 75 mg PO DAILY [facility] Last Admin: 09/03/21 07:33 Dose: 75 mg Documented By: SHRAVAN Colchicine (Colchicine 0.6 Mg Tablet) 0.6 mg PO BID [facility] Last Admin: 09/03/21 09:45 Dose: 0.6 mg Documented By: SHRAVAN Docusate Sodium (Docusate Sodium 100 Mg Capsule) 100 mg PO DAILY PRN PRN Reason: Constipation Hydroxyzine HCl (Hydroxyzine Hcl 50 Mg Tablet) 50 mg PO Q4H PRN PRN Reason: Anxiety Ibuprofen (Ibuprofen 600 Mg Tablet) 600 mg PO Q8H [facility] Last Admin: 09/03/21 15:38 Dose: 600 mg Documented By: KENDALL Levetiracetam (Levetiracetam 500 Mg Tablet) 500 mg PO BID [facility] Last Admin: 09/03/21 07:33 Dose: 500 mg Documented By: SHRAVAN Naproxen (Naproxen 500 Mg Tablet) 500 mg PO BID [facility] Last Admin: 09/03/21 07:33 Dose: 500 mg Documented By: SHRAVAN Nicotine (Nicotine 21 Mg Patch.Td24) 21 mg TRANSDERMA DAILY [facility] Last Admin: 09/03/21 07:33 Dose: Not Given Documented By: SHRAVAN Non-Admin Reason: Patient Refused Nicotine Polacrilex (Nicotine Polacrilex Lozenge 2 Mg Lozenge) 2 mg BUCCAL Q2H PRN PRN Reason: CRAVINGS Olanzapine (Olanzapine 7.5 Mg Tablet) 7.5 mg PO BEDTIME [facility] Last Admin: 09/03/21 00:06 Dose: Not Given Documented By: ROSE MARY Non-Admin Reason: Patient Asleep Omeprazole (Omeprazole 40 Mg Capsule.) 40 mg PO BID@0630,1630 [facility] Last Admin: 09/03/21 15:38 Dose: 40 mg Documented By: KENDALL Ondansetron HCl (Ondansetron Hcl 4 Mg/2 Ml Vial) 4 mg IVPUSH Q8H PRN PRN Reason: Nausea and Vomiting Pharmacy Consult (Consult Rx Perform Med Rec) 1 each MISCELLANE ONCE PRN PRN Reason: Consult order Sodium Chloride (0.9 % Sodium Chloride Flush 3 Ml Syringe) 3 ml IVFLUSH QSHIFT [facility] Last Admin: 09/03/21 15:38 Dose: 3 ml Documented By: KENDALL Trazodone HCl (Trazodone Hcl 100 Mg Tablet) 100 mg PO BEDTIME PRN PRN Reason: Insomnia Labs CBC & Chem 7: 09/03/21 07:16 09/03/21 07:16 Labs: Laboratory Results - last 24 hr 09/02/21 09/02/21 09/02/21 18:47 19:30 19:30 MCV 80.6 MCH 27.2 MCHC 33.7 RDW 14.3 Plt Count 362 MPV 10.0 Immature Gran % (Auto) 0.5 H Neut % (Auto) 82.7 H Lymph % (Auto) 10.7 L [place] % (Auto) 5.9 Eos % (Auto) 0.1 Baso % (Auto) 0.1 Lymph # (Auto) 1.8 [place] # (Auto) 1.0 Eos # (Auto) 0.0 Baso # (Auto) 0.0 Abs Immat Gran (auto) 0.08 H Absolute Neuts (auto) 13.7 H Absolute Nucleated RBC 0.000 Nucleated RBC % (auto) 0.0 Smear Tech's Comments VERIFIED PT INR aPTT Heparin Protocol Anion Gap 13 Estim Creat Clear Calc 48.4 Estimated GFR 56 Random Glucose 75 Calcium 9.6 Total Bilirubin 1.2 H AST 24 ALT 16 Alkaline Phosphatase 85 Troponin I High Sens Total Protein 8.7 H Albumin 4.4 Urine Color Urine Appearance Urine pH Ur Specific [place] Urine Protein Urine Glucose (UA) Urine Ketones Urine Blood Urine Nitrite Ur Leukocyte Esterase Urine Opiates Screen Urine Fentanyl Screen Ur Barbiturates Screen Ur Phencyclidine Scrn Ur Amphetamines Screen Urine Cocaine Screen U Marijuana (THC) Screen COVID-19 (MARS) Negative COVID-19 Clin Com See Note Influenza Type A (FELICITA) Influenza Type B (FELICITA) Influenza A & B Note 09/02/21 09/02/21 09/02/21 19:31 19:33 21:00 MCV MCH MCHC RDW Plt Count MPV Immature Gran % (Auto) Neut % (Auto) Lymph % (Auto) [place] % (Auto) Eos % (Auto) Baso % (Auto) Lymph # (Auto) [place] # (Auto) Eos # (Auto) Baso # (Auto) Abs Immat Gran (auto) Absolute Neuts (auto) Absolute Nucleated RBC Nucleated RBC % (auto) Smear Tech's Comments PT INR aPTT Heparin Protocol Anion Gap Estim Creat Clear Calc Estimated GFR Random Glucose Calcium Total Bilirubin AST ALT Alkaline Phosphatase Troponin I High Sens 19.6 18.6 Total Protein Albumin Urine Color Urine Appearance Urine pH Ur Specific [place] Urine Protein Urine Glucose (UA) Urine Ketones Urine Blood Urine Nitrite Ur Leukocyte Esterase Urine Opiates Screen Urine Fentanyl Screen Ur Barbiturates Screen Ur Phencyclidine Scrn Ur Amphetamines Screen Urine Cocaine Screen U Marijuana (THC) Screen COVID-19 (MARS) COVID-19 Clin Com Influenza Type A (FELICITA) Negative Influenza Type B (FELICITA) Negative Influenza A & B Note See Note 09/02/21 09/02/21 09/02/21 21:19 21:43 21:43 MCV MCH MCHC RDW Plt Count MPV Immature Gran % (Auto) Neut % (Auto) Lymph % (Auto) [place] % (Auto) Eos % (Auto) Baso % (Auto) Lymph # (Auto) [place] # (Auto) Eos # (Auto) Baso # (Auto) Abs Immat Gran (auto) Absolute Neuts (auto) Absolute Nucleated RBC Nucleated RBC % (auto) Smear Tech's Comments PT 13.4 H INR 1.2 H aPTT Heparin Protocol 28.9 L Anion Gap Estim Creat Clear Calc Estimated GFR Random Glucose Calcium Total Bilirubin AST ALT Alkaline Phosphatase Troponin I High Sens Total Protein Albumin Urine Color YELLOW Urine Appearance CLEAR Urine pH 6.0 Ur Specific [place] 1.020 Urine Protein TRACE Urine Glucose (UA) NEG Urine Ketones 5 Urine Blood NEG Urine Nitrite NEG Ur Leukocyte Esterase NEG Urine Opiates Screen Not Detected Urine Fentanyl Screen Not Detected Ur Barbiturates Screen Not Detected Ur Phencyclidine Scrn Not Detected Ur Amphetamines Screen Not Detected Urine Cocaine Screen POSITIVE H U Marijuana (THC) Screen POSITIVE H COVID-19 (MARS) COVID-19 Clin Com Influenza Type A (FELICITA) Influenza Type B (FELICITA) Influenza A & B Note 09/03/21 09/03/21 09/03/21 00:14 07:16 07:16 MCV 81.0 MCH 26.8 L MCHC 33.1 RDW 14.2 Plt Count 328 MPV 9.8 Immature Gran % (Auto) 0.3 Neut % (Auto) 55.0 Lymph % (Auto) 34.4 [place] % (Auto) 8.1 Eos % (Auto) 1.8 Baso % (Auto) 0.4 Lymph # (Auto) 4.0 [place] # (Auto) 0.9 Eos # (Auto) 0.2 Baso # (Auto) 0.1 Abs Immat Gran (auto) 0.04 H Absolute Neuts (auto) 6.3 Absolute Nucleated RBC 0.000 Nucleated RBC % (auto) 0.0 Smear Tech's Comments PT INR aPTT Heparin Protocol Anion Gap 13 Estim Creat Clear Calc 48.0 Estimated GFR 56 Random Glucose 88 Calcium 8.8 D Total Bilirubin AST ALT Alkaline Phosphatase Troponin I High Sens 14.7 Total Protein Albumin Urine Color Urine Appearance Urine pH Ur Specific [place] Urine Protein Urine Glucose (UA) Urine Ketones Urine Blood Urine Nitrite Ur Leukocyte Esterase Urine Opiates Screen Urine Fentanyl Screen Ur Barbiturates Screen Ur Phencyclidine Scrn Ur Amphetamines Screen Urine Cocaine Screen U Marijuana (THC) Screen COVID-19 (MARS) COVID-19 Clin Com Influenza Type A (FELICITA) Influenza Type B (FELICITA) Influenza A & B Note Assessment and Plan (1) Abnormal ECG: Status: Acute Plan This is a 61-year-old male with past medical history of seizure disorder who presents to the hospital with complaints of breakthrough seizures well as being homeless found to have abnormal EKG breakthrough seizure - likely secondary to medication noncompliance/drug use - will resume his home Keppra abnormal EKG patient denies any chest pain, troponin not significantly elevated and has remained flat with no delta Seen by Cardiology, does not seem to be on statin, will start Lipitor Also on Plavix at baseline, will confirm need for DAPT Mood Continue Zyprexa, trazodone, Atarax Tobacco dependence Continue NRT Polysubstance abuse Care team evaluation pending DVT prophylaxis: heparin attending - dr. aquino Disposition-seen by PT, recommend short-term rehab Quality Stroke Does the patient have a stroke diagnosis?: No VTE Prior VTE?: No VTE Risk Level:: Medical - moderate - high VTE Device Contraindication: Treatment Not Indicated VTE Drug Contraindication: N/A - Med Ordered
--- NOTE | 2021-09-03 16:45 | MHC.CARE ---
Addendum entered by Kash Palm 09/03/21 16:47: Pt did not appear to be manic. CARE Team is available for an assessment should one be necessary. Original Note: CARE Team speaks with pt upon receiving a consult request.? Pt reports that he had a seizure and is ?Sore?.? He stated he had some recent loss of housing but is otherwise ?Fine? and is not in need of any additional services, specifically for mental health.? At times he appears confused, unable to answer questions.? He is engaged in the conversation and appears to be a willing participant.? I do question if this is his baseline behavior being exhibited or if he is still experiencing the after effects of a seizure.? [facility] and [facility] have [facility] services through the [facility] as well.? He stated that he does have a hx of inpatient stays with his last stay being 4 days ago at the [facility].? Pt denies AVH, , SI, HI, and self-harm urges.? He makes no eye contact and his speech is mumbled and at times barely audible. Pt has declined Recovery resources. Pt does not appear to be a risk, though, again I question if he this is his baseline behavior being exhibited or if he is still experiencing the after effects of a seizure.?
[2021-09-03 20:15] VITALS: BP 94/65; PULSE 71; RESP 16; O2SAT 98
[2021-09-03] MEDS: Atorvastatin Calcium 40 MG TABLET PO (20:17)
[2021-09-03] MEDS: OLANZapine 7.5 MG TABLET PO (20:26)
--- NOTE | 2021-09-03 20:27 | PC.NURSE ---
Patient refused bacitracin
[2021-09-04] MEDS: Acetaminophen 325 MG TABLET 650 MG PO (00:28)
[2021-09-04 00:34] VITALS: BP 108/72; PULSE 72; RESP 20; TEMP 36.2
--- NOTE | 2021-09-04 00:40 | PC.NURSE ---
UPON ROUNDING PATIENT REQUEST A SANDWICH AND CARLOTTA SERVANDO ,FRESH WATER ,TISSUE AND SMALL TRASH BAG GIVEN .
[2021-09-04 04:00] VITALS: BP 119/78; PULSE 78; RESP 16; TEMP 36.7; O2SAT 97
--- NOTE | 2021-09-04 04:44 | PC.NURSE ---
PATIENT AWAKE DURING VITALS ,ASKED FOR SANDWICH AND CARLOTTA SERVANDO .
[2021-09-04] MEDS: Omeprazole 40 MG CAPSULE.DR PO (05:04)
--- NOTE | 2021-09-04 06:54 | PC.NURSE ---
PATIENT REFUSED 6AM WEIGHT ,RN AWARE .
[2021-09-04] MEDS: levETIRAcetam 500 MG TABLET PO (07:52)
[2021-09-04] MEDS: Clopidogrel Bisulfate 75 MG TABLET PO (07:52)
[2021-09-04] MEDS: Aspirin Enteric Coated 81 MG TABLET.DR PO (07:52)
--- NOTE | 2021-09-04 08:26 | MHC.CM.PN ---
Received fax from [place] containing HCP, Living will/ DPOA. Will upload to [employer]. Broad SNF referrals placed to [place] contracted facilities, however, it is unlikely that pt will be accepted d/t + IVDU, chronic homelessness and multiple admissions to [place] hospitals for SI and other MH crisis. [facility] is working on housing through the [place] [facility] program but this will not be expedient per contact Jing.
[2021-09-04 08:42] LABS: Benzodiazepines Screen Urine NOT DETECTED (Not Detect)
[2021-09-04] MEDS: NaPROXEN 500 MG TABLET PO (09:21)
--- NOTE | 2021-09-04 10:15 | MHC.CM.PN ---
Met with pt to review d/c plans: pt very upset with his room and people coming in and out. I need to sleep, I have seizures, leave me alone Discussed barriers to STR placement: offered to extend STR base out another 100 miles. Pt states he would like to return to [facility] inpt psych but not until tomorrow as he would like a day to sleep. Reminded pt of his [facility] [place] on coordinator, Jing and his upcoming [facility] with [facility]. Offered pt a list of area shelters in the event he can't get placed to which pt declined. I'll just go back to [facility], tomorrow Will discuss plans with provider: pt is still awaiting a CARE team consult
--- NOTE | 2021-09-04 10:35 | P.PNCA_ITS ---
Subjective Subjective Date of Service: 09/04/21 Interval history: He was sleepy. Venogram from sleep, he states that he is doing fine and does not have any cardiac symptoms like angina. Just the whole body hurts. Review of Systems Review of Systems Yes all other systems are reviewed and are negative Constitutional: Reports as per HPI Eyes: Reports as per HPI Reports as per HPI Cardiovascular: Reports as per HPI, Denies acrocyanosis, Denies cool ext remities, Denies chest pain, Denies leg edema, Denies lightheadedness, Denies palpitations and Denies dyspnea Respiratory: Reports as per HPI, Reports no additional respiratory complaints and Denies dyspnea Gastrointestinal: Reports as per HPI and Reports no additional gastrointestinal complaints Genitourinary: Reports no additional male genitourinary complaints and Reports as per HPI Musculoskeletal: Reports no additional musculoskeletal complaints (Pain everywhere) and Reports as per HPI Skin/Breast: Reports system reviewed and no additional complaints, except as docu Reports system reviewed and no additional complaints, except as documented and Reports as per HPI Psychiatric: Reports no additional psychiatric complaints and Reports as per HPI Endocrine: Reports no additional endocrine complaints, Reports as per HPI and Denies palpitations Hematologic/Lymphatic: Reports no additional hematologic/lymphatic complaints and Reports as per HPI Allergic/Immunologic: Reports no additional allergic/immunologic complaints and Reports as per HPI Physical Exam Vital Signs: Last Vital Signs Temp 98.0 F 09/04/21 04:00 Pulse 78 09/04/21 04:00 Resp 16 09/04/21 04:00 BP 119/78 09/04/21 04:00 Pulse Ox 97 09/04/21 04:00 O2 Del Method 09/04/21 04:00 FiO2 97 09/04/21 00:34 BMI result Body Mass Index 21.4 Const General: comfortable and no acute distress HEENT Other: Unremarkable Head: Yes normal to inspection Neck Neck: Yes normal visual inspection Chest Chest palpation & inspection: normal inspection of the chest Resp Auscultation: clear to auscultation bilaterally Cardio Palpation: normal PMI Heart sounds: S1 normal heart sound present, S2 normal heart sound present, no gallops, no murmurs and no rubs GI Palpation (GI): Soft to palpation Back/Spine/Pelvis Other: unremarkable Skin General skin exam: no rashes or lesions noted Neuro General: no focal motor deficits Extrem General: Yes normal to inspection Psych Mental Status: mental status grossly normal Objective Labs and Meds Result diagrams: 09/03/21 07:16 09/03/21 07:16 Lab results: Laboratory Results - last 24 hr 09/02/21 21:43 U Benzodiazepines Scrn NOT DETECTED Progress Note: A&P Assessment and plan (1) Abnormal ECG: Status: Acute (2) Cocaine abuse: Status: Acute (3) Atherosclerotic cardiovascular disease: Status: Acute Plan EKG changes of ST elevation or other chronic. High sensitivity troponins are well within normal limits. Echocardiogram from [facility] 2019-LVEF 55-60%; cannot rule out basal to mid inferolateral/lateral hypokinesis. Repeat echocardiogram shows LVEF of 46%; inferolateral akinesis. Mild mitral and tricuspid regurgitation. Cardiac [id number] of mid circumflex after a large OM 1; mid RCA/mid LAD 50%; proximal D1 90% but small to medium-sized vessel. Attempts at wiring the mid circumflex occlusion was not successful. Overall, based on the above, he has underlying coronary disease but does not appear to have any acute coronary syndrome. Echocardiographic findings are probably from occlusion of circumflex that is previously known. Overall these are chronic. He needs to refrain from cocaine use completely. Consider rehabilitation for this. With regard to medications, seems totally noncompliant. At least low- dose aspirin and some statins. Discussed with Carmina Bowman. Time Spent With Patient Time: Total time spent is greater than 50% in coordination of care (as documented) at patient's floor/unit and/or counseling patient: 35min. Progress Note: Quality Stroke Does the patient have a stroke diagnosis?: No Procedures Date of Service Date of Service: 09/04/21
[2021-09-04 11:48] VITALS: BP 105/69; PULSE 72; RESP 15; TEMP 36.1; O2SAT 97
--- NOTE | 2021-09-04 13:35 | MHC.CM.PN ---
Addendum entered by Kierra Bear 09/04/21 16:21: [facility] unable to be contacted: Mary referral placed: x 2: W/C van referral made without acceptance as of this note: ED CM to assist pt with transportation to his requested destination at [facility] Addendum entered by Kierra Bear 09/04/21 13:55: Pt given copy of his upcoming appointments from his d/c on 08/28 at the [facility] and a taxi voucher for one way transportation to [facility]. RN will call [facility] at [phone] when pt is ready for d/c. Original Note: CM walked pt around unit using pt's own walking stick/cane. Pt slow but states this is his baseline: stopped x 2 to rest but demonstrated safety awareness. Discussed d/c plan options: pt states he does not want to go to a STR facility as he feels it's essentially shelter , pt also declined custodial placement citing that's worse than shelter Pt states he wanted to return to [facility] where he is in process of securing housing through the [place] [facility] program. Call placed to Jing, medical staff services coordinator at [facility]. She is requesting [facility] visit information for pt's housing. She states pt is welcomed to return to the [facility] campus but may not meet the criteria for INPT admission to building [facility]. This information was relayed to pt who verbalized understanding but continues to request returning as his d/c plan. Will fax [facility] visit information to Jing and arrange for taxi voucher to [facility]. Pt has a large bag of personal belongings with him including full prescription bottles: pt would not allow CM to review and said [facility].
--- NOTE | 2021-09-04 13:59 | P.DS_ITS ---
DS: Providers Provider Date of Service: 09/04/21 Date of admission: 09/02/21 22:41 Date of discharge: 09/04/21 Primary care physician: Unknown Physician Consults: 09/02/21 22:41 Consult to Cardiology Routine Consulting Provider: Jenaro Crocker Reason for consultation: ST elevations Has provider been notified: Yes 09/03/21 13:40 Consult to Care Team Routine Comment: Reason for consultation: substance abuse; ?mental health, racing thoughts h/o johanna, PTSD Attending physician on discharge: Brain Gomez Discharging clinician: Carmina Bowman DS: Diagnosis Discharge Diagnosis (1) Abnormal ECG: Status: Acute (2) Cocaine abuse: Status: Acute (3) Atherosclerotic cardiovascular disease: Status: Acute DS: Summary Hospital Course Hospital Course: From H&P on day of admission This is a 61-year-old male with past medical history of seizure disorder, TBI, hypertension, gout, cocaine abuse, anxiety and depression, johanna, PTSD who presents to the hospital stating he had a seizure episode.? Patient is somnolent but arousable and answers questions appropriately, very sleepy, difficult to stay up to answer questions completely.? He reports missed doses of Keppra as he has become homeless.? He currently is homeless and looking for a place to live in.? He currently denies any headache, no change in vision, no head trauma, no chest pain, no shortness of breath, no abdominal pain nausea or vomiting, no diarrhea constipation, no urinary symptoms and no lower extremity edema. On arrival to the ED patient hemodynamically stable with no significant abnormal vitals Labs are significant for WBC count of 16.5, hemoglobin of 14, hematocrit 41.5, PT of 13.4, INR 1.2, creatinine of 1.31, BUN of 18 UA negative, UDS positive for cocaine and marijuana, COVID and influenza negative.? EKG revealed ST elevations in leads V1, V2, V3, T-wave inversions in V4 V5 and V6, as well as lead 1 aVL, initial high sensitivity troponin of 19, repeat 18, this case was discussed with Cardiology, will admit for possible pericarditis, follow troponin, and echocardiogram in the morning. breakthrough seizure . likely secondary to medication noncompliance/drug use. He was resumed his home Keppra. He had no further episodes of seizure while hospitalized. abnormal EKG patient denies any chest pain, troponin not significantly elevated and has remained flat with no delta Seen by Cardiology, does not seem to be on statin, will start Lipitor. Records obtained from [facility] showed no significant change in EKG or echocardiogram. Cardiology recommended to continue aspirin and start statin. Unclear why patient is on Plavix at baseline but is not necessary from cardiology perspective. Would recommend to follow-up with PCP determine need for ongoing Substance use. Patient was counseled to abstain from substance use. Patient was seen by care team, declined resources Patient was seen by Physical therapy who recommended short-term rehab. He declined short-term rehab. He was ambulated by nurse was able to ambulate independently. He is requesting to go to [place] in [place]. Case Management reached out to the [place] coordinator there. They are trying to assist him in getting housing. Time Spent with Patient Time attestation: Total time spent providing and/or coordinating discharge services: Discharge coordination time: Greater than 30 minutes Quality: Safe Use of Opioids Does Pt have an Active Cancer Diagnosis on the Problem List?: No Quality: Stroke Does the patient have a stroke diagnosis?: No Physical Exam Vital Signs: Vital Signs: Last Vital Signs Temp 96.9 F 09/04/21 11:48 Pulse 72 09/04/21 11:48 Resp 15 09/04/21 11:48 BP 105/69 09/04/21 11:48 Pulse Ox 97 09/04/21 11:48 O2 Del Method 09/04/21 11:48 FiO2 97 09/04/21 00:34 BMI result Body Mass Index 21.4 Const: General: cooperative, comfortable and no acute distress Resp: Effort & Inspection: normal respiratory effort and able to speak in complete sentences Auscultation: clear to auscultation bilaterally Cardio: Jugular venous distension: no JVD Rate: regular rate Heart s ounds: S1 normal heart sound present and S2 normal heart sound present GI: Palpation (GI): Soft to palpation and nontender Neuro: Other: Grossly nonfocal Extrem: General: Yes no pedal edema DS: Data Data Completed and Pending Labs on day of discharge: Laboratory Results - last 24 hr 09/02/21 21:43 U Benzodiazepines Scrn NOT DETECTED Discharge Plan Discharge Patient Disposition: Home, Self-Care Discharge Diagnosis: Breakthrough seizure Abnormal EKG Polysubstance use Referrals: [facility] [Provider Group] - 1 Week Jose J Shea MD [Physician] - 1 Week Physician,Liliana Luna [Primary Care Provider] - 1 Week Discharge Medications: New atorvastatin 40 mg Tablet 40 mg PO BEDTIME 30 Days Qty: 30 0RF Continued levetiracetam 500 mg Tablet 500 mg PO BID meloxicam 15 mg Tablet 15 mg PO DAILY hydroxyzine pamoate 50 mg Capsule 50 mg PO Q4H PRN (Reason: Anxiety) bacitracin 500 unit/gram Ointment 1 appl TOPICAL BID clopidogrel 75 mg Tablet 75 mg PO DAILY olanzapine 7.5 mg Tablet 7.5 mg PO BEDTIME aspirin 81 mg Tablet,Delayed Release (Dr/Ec) 81 mg PO DAILY trazodone 100 mg Tablet 100 mg PO BEDTIME PRN (Reason: Insomnia) nicotine 21 mg/24 hr Patch 24 Hour 1 patch TRANSDERMAL DAILY nicotine (polacrilex) 2 mg Lozenge 2 mg BUCCAL Q2H PRN (Reason: CRAVINGS) Discharge Orders: Discharge Order (Routine); Ordered 09/04/21 Ordered By: Carmina Bowman Activity on Discharge: As tolerated Stand Alone Forms: Patient Portal Discharge page Care Plan Goals: See below Health Concerns: Breakthrough seizure Substance use Abnormal EKG/CAD Plan of Treatment: Take aspirin and statin as prescribed. Discussed with PCP need for continuing Plavix Take Keppra as prescribed. Do not miss any doses Call to schedule follow-up appointment with PCP Recommend to abstain from all substances Assessment: See discharge summary Discharge Date/Time: 09/04/21 15:45
== END 2021-09-04 15:45 | disposition home or self-care (01) ==
LOC: HO.ED 19:04 → HO.EDOVER 23:10
PROVIDERS: Admitting Provider Internal Medicine; Emergency Provider Internal Medicine; Responsible Provider Physician Assistant Medical; Visit Provider Physician Assistant Medical
DX: G40.802 Other epilepsy, not intractable, without status epilepticus (principal); I25.10 Atherosclerotic heart disease of native coronary artery without angina pectoris; R94.31 Abnormal electrocardiogram [ECG] [EKG]; F14.10 Cocaine abuse, uncomplicated; R40.0 Somnolence; I10 Essential (primary) hypertension; F32.9 Major depressive disorder, single episode, unspecified; F41.9 Anxiety disorder, unspecified; F43.10 Post-traumatic stress disorder, unspecified; F17.200 Nicotine dependence, unspecified, uncomplicated; F12.90 Cannabis use, unspecified, uncomplicated; Z20.822 Contact with and (suspected) exposure to COVID-19; Z59.00 Homelessness unspecified; Z91.14 Patient's other noncompliance with medication regimen; Z87.820 Personal history of traumatic brain injury; Z79.899 Other long term (current) drug therapy; Z79.82 Long term (current) use of aspirin
CPT/HCPCS: 36415; 71045; 80048; 80053; 80307; 81003; 84484; 85025; 85610; 85730; 87502; 87635; 93005; 93306; 96374; 96375; 97162; 99219; 99285; Q9967